=== PATIENT | male | born 2000 ===

== ENCOUNTER 2024-10-23 13:28 | Emergency (ER) | payer SELFPAY ==
[2024-10-23 13:33] VITALS: BP 118/86; PULSE 82; RESP 18; TEMP 37.4; O2SAT 97; BMI 19.4
--- NOTE | 2024-10-23 14:12 | ED_ITS ---
HPI - General Adult General Chief complaint: Nausea/Vomiting Stated complaint: vomiting black, lump in throat Time Seen by Provider: 10/23/24 13:55 Source: patient Mode of arrival: ambulatory Limitations: no limitations History of Present Illness HPI narrative: 24-year-old male coming in today the concerned about vomiting dark brown and black vomitus. Patient states that he vomits 1-3 times per week and has been doing so for approximately 6 weeks or longer. Last night he felt a sharp pain in the back of his throat and vomited around 2:00 a.m. and he describes it as dark brown coffee grounds. Around 1:00 p.m. today he had a similar sensation in the back of his throat which he describes as sharp pain but sometimes a wiggling sensation, and then vomited again. This time was darker black. Patient has bee n smoking and vaping for years. He smokes marijuana daily. He denies feeling dizzy or lightheaded. He denies chest pain. He denies feeling short of breath. This sensation is giving him quite a bit of anxiety, unfortunately. He denies abdominal discomfort, coughing. No fevers or chills. He takes no daily medications. Related Data Home Medications ?Medication ?Instructions ?Recorded ?Confirmed No Known Home Medications 10/23/24 10/23/24 Allergies Allergy/AdvReac Type Severity Reaction Status Date / Time No Known Drug Allergies Allergy Verified 10/23/24 13:41 Review of Systems Status of ROS: Reports: 10 or more systems reviewed and unremarkable except as noted in History and below [facility] Social History Smoking Status: Current every day smoker What tobacco products do you use: cigarettes Do you use any of these nicotine containing products: Vaping Products Second hand tobacco smoke exposure: Yes How often do you have a drink containing alcohol: 2-3 times a week How many standard drinks containing alcohol do you have on a typical day: 10 or more How often do you have six or more drinks on one occasion: Weekly AUDIT-C Alcohol total score: 10 Non-prescribed substance use: marijuana (any form) service: No Exam Narrative: Exam Narrative: Thin, well-developed patient in no acute distress. Alert and oriented. Answers questions appropriately. Mood and affect are appropriate. Thoughts are goal oriented and rational. No tangential or magical thinking noted. Patient speaks in full sentences without needing to catch their breath. Patient smells of marijuana. HEENT: Normocephalic atraumatic. Pupils are equally round reactive to light. Extraocular muscles are intact. Conjunctivae are moist without any icterus noted, mild injection bilaterally. Moist mucous membranes. Posterior pharynx is normal. Neck is soft without any lymphadenopathy or thyromegaly. No masses are appreciated. Cardiovascular: Heart is regular rate and rhythm S1 and S2 are present without any murmurs. Lungs: Clear to auscultation bilaterally no wheezes rhonchi or rales are appreciated. Patient takes deep breaths without any discomfort. Abdomen: Soft and nontender nondistended with normal bowel sounds. Skin: Well perfused without any obvious rashes. Const: Vital Signs, click to edit/add: Vital Signs - 24 hr 10/23/24 13:33 Temperature 99.3 F Pulse Rate [Pulse Oximeter] 82 Respiratory Rate 18 Blood Pressure [Ri ght Upper Arm] 118/86 Pulse Oximetry 97 Oxygen Delivery Me thod Room Air Course Course ED Course: Patient remains hemodynamically stable. CBC is entirely normal. IV is established he does receive 80 mg of IV Protonix. Staff spoke to Dr. Terry and patient will have an endoscopy scheduled for tomorrow 10/23/24 Vital Signs Vital signs: Initial Vital Signs Temperature 99.3 F 10/23/24 13:33 Temperature Source Temporal Artery Scan 10/23/24 13:33 Pulse Rate 82 10/23/24 13:33 Respiratory Rate 18 10/23/24 13:33 Blood Pressure 118/86 10/23/24 13:33 Blood Pressure Mean 96 10/23/24 13:33 Blood Pressure Position Sitting 10/23/24 13:33 Pulse Oximetry 97 10/23/24 13:33 Oxygen Delivery Method Room Air 10/23/24 13:33 Vital Signs Temperature 99.3 F 10/23/24 13:33 Pulse Rate 82 10/23/24 13:33 Respiratory Rate 18 10/23/24 13:33 Blood Pressure 118/86 10/23/24 13:33 Pulse Oximetry 97 10/23/24 13:33 Oxygen Delivery Method Room Air 10/23/24 13:33 Temperature 99.3 F 10/23/24 13:33 Pulse Rate 82 10/23/24 13:33 Respiratory Rate 18 10/23/24 13:33 Blood Pressure 118/86 10/23/24 13:33 Pulse Oximetry 97 10/23/24 13:33 Oxygen Delivery Method Room Air 10/23/24 13:33 Medications Administered Medications: Discontinued Medications Generic Name Dose Route Start Last Admin Trade Name Luis PRN Reason Stop Dose Admin Pantoprazole Sodium 80 mg 10/23/24 13:56 10/23/24 14:14 Pantoprazole Sodium 40 Mg Inj IVP 10/23/24 13:57 80 mg ONCE ONE Administration Medical Decision Making MDM Narrative Medical decision making narrative: Cyclic vomiting secondary to marijuana use with concern for upper GI bleed. Patient is scheduled for endoscopy tomorrow. Lab Data Lab results reviewed: Yes I reviewed the patient's lab results Labs: Lab Results 10/23/24 Range/Units 14:26 WBC 8.14 (4.50-11.00) K/uL RBC 5.02 (4.30-5.90) m/uL Hgb 15.5 (13.5-17.5) gm/dL Hct 45.0 (37.0-53.0) % MCV 90 (80-100) fL MCH 31 (26-34) pg MCHC 34 (32-36) gm/dL RDW Coeff of Kitty 11.9 (11.5-15.5) % Plt Count 275 (140-440) K/uL Neut % (Auto) 64.7 (42.0-72.0) % Lymph % (Auto) 28.0 (20-44) % [place] % (Auto) 6.1 (0.0-11.0) % Eos % (Auto) 0.9 (0.0-7.0) % Baso % (Auto) 0.2 (0.0-3.0) % Neut # (Auto) 5.26 (1.7-7.0) K/uL Lymph # (Auto) 2.28 (0.90-2.90) K/uL [place] # (Auto) 0.50 (0.00-0.90) K/UL Eos # (Auto) 0.07 (0.00-0.50) K/uL Baso # (Auto) 0.02 (0.00-0.30) K/uL Abs Immat Gran (auto) 0.01 (0.00-0.30) K/uL Imm/Tot Granulo (auto) 0.1 % Discharge Plan Discharge Clinical Impression: Acute upper GI bleed, Cannabinoid hyperemesis syndrome Patient Disposition: Home, Self-Care Condition: Stable Additional Instructions: You will need to stop smoking marijuana. The affects of marijuana can last for several months before your body clears everything up. You will have an upper endoscopy tomorrow where a camera will be inserted into t he esophagus and stomach to look for any evidence of bleeding or damage. Instructions of when and where will be provided to you. Return to the emergency department if you develop vomiting with bright red blood. Recommend you start taking omeprazole 20 mg daily-this can be purchased [id number]. This medication will reduce the amount of acid in your stomach. Prescriptions: No Action No Known Home Medications Follow Up/Referrals: Provider,Not a Local [Primary Care Provider] - Stand Alone Forms: Stunable Info Instructions
[2024-10-23] MEDS: PANTOPRAZOLE SODIUM 40 MG INJ 80 MG IVP (14:14)
[2024-10-23 14:33] LABS: Basophils Absolute Auto 0.02 K/uL (0.00-0.30); Basophils Percent Auto 0.2 % (0.0-3.0); Eosinophils Absolute Auto 0.07 K/uL (0.00-0.50); Eosinophils Percent Auto 0.9 % (0.0-7.0); Hemoglobin* 15.5 gm/dL (13.5-17.5); Immature Granulocytes Abs Auto 0.01 K/uL (0.00-0.30); Immature Granulocytes Pct Auto 0.1 %; Lymphocytes Absolute Auto 2.28 K/uL (0.90-2.90); Mean Corpuscular HGB Conc 34 gm/dL (32-36); Mean Corpuscular Hemoglobin 31 pg (26-34); Mean Corpuscular Volume 90 fL (80-100); Monocytes Percent Auto 6.1 % (0.0-11.0); Neutrophils Absolute Auto 5.26 K/uL (1.7-7.0); Neutrophils Percent Auto 64.7 % (42.0-72.0); Platelet Count* 275 K/uL (140-440); RDW Coefficient of Variation % 11.9 % (11.5-15.5); Red Blood Count 5.02 m/uL (4.30-5.90); White Blood Count* 8.14 K/uL (4.50-11.00)
[2024-10-23 14:36] LABS: Slide Review Reflex No
== END 2024-10-23 14:59 | disposition home or self-care (01) ==
PROVIDERS: Emergency Provider Family Medicine
DX: K92.2 Gastrointestinal hemorrhage, unspecified (principal); R11.10 Vomiting, unspecified; F12.90 Cannabis use, unspecified, uncomplicated
CPT/HCPCS: 36415; 85025; 96374; 99284; J2470

== ENCOUNTER 2024-10-24 08:10 | Outpatient (CLI) | payer SELFPAY ==
--- NOTE | 2024-10-24 09:12 | W.ANESCHARGE ---
Anesthesia Charges Start Date/Time Anesthesia Start Date: 10/24/24 Anesthesia Start Time: 08:52 Stop Date/Time Anesthesia Stop Date: 10/24/24 Anesthesia Stop Time: 09:09
--- NOTE | 2024-10-24 09:47 | W.ANESCHARGE ---
Anesthesia Charges Start Date/Time Anesthesia Start Date: 10/24/24 Anesthesia Start Time: 08:52 Stop Date/Time Anesthesia Stop Date: 10/24/24 Anesthesia Stop Time: 09:09
== END 2024-10-24 08:11 | disposition home or self-care (01) ==
LOC: OP CLINIC 08:11
PROVIDERS: Visit Provider Surgery
DX: R13.10 Dysphagia, unspecified (principal); D50.9 Iron deficiency anemia, unspecified
CPT/HCPCS: 00731; 43239; 88305; J2704; J3010